=== PATIENT | male | born 1965 | race African-American/Black ===

== ENCOUNTER 2019-02-17 14:59 | Observation (INO) ==
[2019-02-17] MEDS ORDERED: ONDANSETRON 4 MG/2 ML VIAL IV PRN (16:47)
[2019-02-17] MEDS ORDERED: ACETAMINOPHEN 325 MG TABLET PO PRN (16:47)
[2019-02-17] MEDS ORDERED: THIAMINE INJ 100 MG, FOLIC ACID INJ 1 MG, MULTIVITAMIN INJ 10 ML in SODIUM CHLORIDE 0.9... IV ONE (16:49)
[2019-02-17] MEDS ORDERED: METHOCARBAMOL 750 MG TABLET PO PRN (16:49)
[2019-02-17] MEDS ORDERED: hydrOXYzine HCL 25 MG/1 ML VIAL IM PRN (16:49)
[2019-02-17 17:40] LABS: Basophils # 0.1 10*3/uL (0.0-0.2); Basophils % 1.1 % (0.0-0.8); Eosinophils # 0.1 10*3/uL (0.0-0.87); Eosinophils % 1.7 % (0.00-10.9); Hemoglobin 10.9 GM/DL (14.0-18.0); Immature Granulocytes % 0.3 %; Immature Granulocytes Absolute 0.02 #; Lymphocytes # 1.6 10*3/uL (1.4-4.0); Lymphocytes % 24.6 % (21.2-54.2); Mean Corpuscular HGB Conc 31.1 GM/DL (32-36); Mean Corpuscular Volume 80.8 FL (87-102); Mean Platelet Volume 11.2 FL (9.6-12.0); Neutrophils % 58.3 % (38.7-73.9); Platelet Count 254 T/CUMM (130-400); Red Blood Count 4.33 MC/CUMM (3.8-5.5); Red Cell Distribution Width 15.7 % (9.3-17.3); White Blood Count 6.4 T/CUMM (4-12)
[2019-02-17 18:12] LABS: Alanine Aminotransferase 17 U/L (16-61); Albumin 3.1 G/DL (3.4-5.0); Alkaline Phosphatase 67 U/L (45-117); Aspartate Amino Transferase 20 U/L (0-37); Bilirubin,Total < 0.39 MG/DL (0.2-1.0); Blood Urea Nitrogen 7 MG/DL (7-18); Glucose 94 MG/DL (74-106); HDL Cholesterol 43 MG/DL (40-60); Osmolality,Calculated 276.4 MOS/KG (273-304); Risk Ratio 3.35; Thyroid Stimulating Hormone 0.578 uIU/ml (0.358-3.74); Total Protein 7.7 G/DL (6.4-8.3); Triglycerides 103 MG/DL (2-150); VLDL CHOLESTEROL 20.6 MG/DL
[2019-02-17] MEDS: LORazepam 1 MG TABLET PO SCH ×2 (18:37→21:35)
[2019-02-17] MEDS: cloNIDine 0.1 MG TABLET PO SCH ×2 (18:38→21:36)
[2019-02-17] MEDS: NICOTINE 14 MG/24 HR PATCH TRANSDERM SCH (18:40)
[2019-02-17] MEDS ORDERED: ENOXAPARIN 30 MG/0.3 ML SYRINGE SUBCUT SCH (21:00)
[2019-02-18] MEDS: LORazepam 1 MG TABLET PO SCH ×5 (01:17→18:40)
[2019-02-18] MEDS: cloNIDine 0.1 MG TABLET PO SCH ×5 (01:17→18:40)
[2019-02-18] MEDS ORDERED: PANTOPRAZOLE 40 MG TABLET PO SCH (09:00)
[2019-02-18] MEDS ORDERED: NICOTINE 14 MG/24 HR PATCH TRANSDERM SCH (09:00)
[2019-02-18] MEDS: NICOTINE 14 MG/24 HR PATCH TRANSDERM SCH (11:22)
[2019-02-18 16:34] VITALS: BP 117/69
== END 2019-02-18 17:15 | disposition left against medical advice (07) ==
LOC: N.4E 15:40 → INTOOBSV 16:47
PROVIDERS: ADMIT Nurse Practitioner Family; ATTEND Internal Medicine